=== PATIENT | male | born 1960 | race Caucasian/White ===

== ENCOUNTER 2023-01-29 15:02 | Emergency (ER) | payer BC ==
[~2023-01-29] VITALS: Ht 180.3 cm; Wt 81.9 kg
[2023-01-29 18:48] VITALS: BP 128/75; PULSE 84; RESP 18; TEMP 99.1; O2SAT 97
[2023-01-29] MEDS ORDERED: cefTRIAXone SOD 1,000 MG VL IM ONE (19:45)
[2023-01-29] MEDS ORDERED: TETANUS-DIPTH-ACEL PERTUSSIS 0.5ML SYR Tdap IM ONE (19:45)
[2023-01-29] MEDS ORDERED: IBUP-1456 PO (19:53)
[2023-01-29] MEDS ORDERED: CLIN300C70 PO (19:53)
[2023-01-29] MEDS ORDERED: CEPH500C PO (19:53)
[2023-01-29] MEDS ORDERED: KETOROLAC TROMETH 60MG/2ML VIAL IM ONE (20:00)
== END 2023-01-29 20:23 | disposition home or self-care (01) ==
LOC: ER 15:02
DX: S80.851A Superficial foreign body, right lower leg, initial encounter (principal); Z79.899 Other long term (current) drug therapy; X58.XXXA Exposure to other specified factors, initial encounter; Y93.89 Activity, other specified; Y92.89 Other specified places as the place of occurrence of the external cause; Y99.8 Other external cause status
CPT/HCPCS: 73590; 90471; 90715; 96372; 99284; J0696; J1885